=== PATIENT | female | born 1995 | race Caucasian/White ===

== ENCOUNTER 2019-12-24 13:37 | Emergency (ER) | payer BC, OTHER ==
[~2019-12-24] VITALS: Ht 152.4 cm; Wt 72.6 kg
[2019-12-24 15:44] VITALS: BP 117/73
== END 2019-12-24 15:46 | disposition home or self-care (01) ==
LOC: ER 13:37
DX: B34.9 Viral infection, unspecified (principal); Z20.828 Contact with and (suspected) exposure to other viral communicable diseases; Z71.89 Other specified counseling
CPT/HCPCS: 71045; 93005; 99283